=== PATIENT | male | born 1950 | race Caucasian/White ===

== ENCOUNTER 2017-03-09 20:33 | Emergency (ER) | payer OTHER ==
[~2017-03-09] VITALS: Ht 185.4 cm; Wt 91.2 kg
--- NOTE | 2017-03-09 20:36 | NUR ---
DR LAMB AT BEDSIDE FOR EVAL.
--- NOTE | 2017-03-09 20:42 | NUR ---
PT BIBRA FROM HOME TO ER BED 11. C/O SOB X 2 DAYS NOW AND IS WORST TODAY. PT DENIES CHEST PAIN. HX OF CHF. GOWNED AND PLACED ON MONITOR. AWAITING MD BETANCOURT.
[2017-03-09] MEDS ORDERED: IPRATROPIUM NEB FS 0.5 MG/2.5 ML AMPUL.NEB ONE (20:47)
[2017-03-09] MEDS ORDERED: ALBUTEROL FS 2.5 MG/0.5 ML VIAL.NEB ONE (20:47)
--- NOTE | 2017-03-09 20:47 | NUR ---
RT AT BEDSIDE FOR BREATHING TREATMENT.
--- NOTE | 2017-03-09 20:47 | NUR ---
Lisa lutz in ED - 03/09/17 at 2120 by GEOVANNI RT AT BEDSIDE FOR EVAL.
[2017-03-09 20:51] LABS: BASOPHILS # (AUTO) 0.1 /CMM (0.0-0.2); BASOPHILS % (AUTO) 0.7 % (0.0-2.0); EOSINOPHILS # (AUTO) 0.2 /CMM (0.0-0.7); EOSINOPHILS % (AUTO) 1.6 % (0.0-6.0); HEMATOCRIT 40 % (39-51); HEMOGLOBIN 13.9 g/dL (13.5-17.5); LYMPHOCYTES # (AUTO) 0.9 /CMM (0.8-4.8); MEAN CORPUSCULAR HEMOGLOBIN 33 PG (26.0-33.0); MEAN CORPUSCULAR HGB CONC 35 g/dl (31.0-36.0); MEAN CORPUSCULAR VOLUME 96 fL (80-96); MONOCYTES # (AUTO) 0.8 /CMM (0.1-1.30); NEUTROPHILS # (AUTO) 8.2 /CMM (1.8-8.9); NEUTROPHILS % (AUTO) 80.7 % (43.0-81.0); PLATELET COUNT (AUTO) 179 /CMM (150-450); RDW COEFFICIENT OF VARIATION 12.8 (11.5-15.0); RED BLOOD CELL COUNT(AUTO) 4.18 MIL/uL (4.5-6.0); WHITE BLOOD COUNT (AUTO) 10.2 K/uL (4.3-11.0)
--- NOTE | 2017-03-09 20:58 | NUR ---
PT TO RADIOLOGY FOR CHEST XRAY.
[2017-03-09] MEDS ORDERED: ALBUTEROL FS 2.5 MG/3 ML VIAL.NEB NEB ONE (21:00)
[2017-03-09] MEDS ORDERED: IPRATROPIUM NEB FS 0.5 MG/2.5 ML AMPUL.NEB NEB ONE (21:00)
[2017-03-09 21:01] LABS: CALCIUM, SERUM 8.5 mg/dL (8.5-10.1); POTASSIUM 3.6 mmol/L (3.5-5.1)
[2017-03-09 21:07] LABS: INR 1.1 (0.87-1.13); PROTHROMBIN TIME 11.4 SECS (9.5-12.7)
[2017-03-09 21:09] LABS: TROPONIN I 0.051 ng/mL (0.00-0.056)
[2017-03-09 21:14] LABS: BILIRUBIN,DIRECT 0.2 mg/dL (0.0-0.2); BILIRUBIN,TOTAL 0.7 mg/dL (0.2-1.0); TOTAL PROTEIN, SERUM 6.5 g/dL (6.4-8.2)
[2017-03-09] MEDS ORDERED: FUROSEMIDE 40 MG/4 ML VIAL ONE (21:21)
[2017-03-09] MEDS ORDERED: DILTIAZEM HCL 25 MG IV ONE (21:22)
[2017-03-09] MEDS ORDERED: FUROSEMIDE 40 MG/4 ML VIAL IV ONE (21:30)
[2017-03-09] MEDS ORDERED: ASPIRIN 325 MG TABLET PO ONE (21:30)
[2017-03-09] MEDS ORDERED: DILTIAZEM HCL 25 MG IV IV ONE (21:30)
[2017-03-09] MEDS ORDERED: ASPIRIN 325 MG TABLET ONE (21:34)
--- NOTE | 2017-03-09 21:41 | NUR ---
[facility]ED [facility], AWAITING CALL BACK FROM MANAWA
[2017-03-09] MEDS ORDERED: CEFTRIAXONE 1GM BAG (ER ONLY) 50 ML IV ONE (22:11)
[2017-03-09] MEDS ORDERED: DILTIAZEM HCL CD 120 MG PO ONE (22:11)
--- NOTE | 2017-03-09 22:28 | NUR ---
GOING TO [facility] ACCEPTED BY DR. SOLO CALL FOR REPORT ETA: [phone]
[2017-03-09] MEDS ORDERED: DILTIAZEM HCL CD 240 MG PO SCH (22:30)
[2017-03-09] MEDS ORDERED: CEFTRIAXONE 1GM BAG (ER ONLY) 1 GM/50 ML PIGGYBACK IV ONE (22:30)
--- NOTE | 2017-03-09 22:47 | NUR ---
REPORT GIVEN TO JESSICA. PT AWAITING TRANSPORT.
--- NOTE | 2017-03-09 23:29 | NUR ---
PT TRANSPORTED TO [facility]. STABLE CONDITION.
[2017-03-09 23:30] VITALS: BP 132/91
== END 2017-03-09 23:32 | disposition short-term general hospital (02) ==
LOC: ER 20:35
DX: I11.0 Hypertensive heart disease with heart failure (principal); I50.9 Heart failure, unspecified; I48.91 Unspecified atrial fibrillation
CPT/HCPCS: 36415; 71010-TC; 80048-TC; 80076-TC; 83880; 84484-TC; 85025-TC; 85730-TC; 87400; A4606; J0696; J1940; J3490; Z7610

== ENCOUNTER 2023-07-27 17:07 | Emergency (ER) | payer OTHER ==
[~2023-07-27] VITALS: Ht 185.4 cm; Wt 77.1 kg
[2023-07-27] MEDS: FUROSEMIDE 40 MG/4 ML VIAL IV ONE (17:52)
[2023-07-27] MEDS ORDERED: FUROSEMIDE 40 MG/4 ML VIAL ONE (17:53)
[2023-07-27 17:55] LABS: BASOPHILS # (AUTO) 0.1 K/uL (0.0-0.2); BASOPHILS % (AUTO) 1.4 % (0.0-2.0); EOSINOPHILS # (AUTO) 0.1 K/uL (0.0-0.7); HEMATOCRIT 42 % (39-51); HEMOGLOBIN 13.7 g/dL (13.5-17.5); LYMPHOCYTES # (AUTO) 0.9 K/uL (0.8-4.8); LYMPHOCYTES % (AUTO) 14.1 % (20.0-44.0); MEAN CORPUSCULAR HEMOGLOBIN 31 PG (26.0-33.0); MEAN CORPUSCULAR HGB CONC 33 g/dl (31.0-36.0); MEAN CORPUSCULAR VOLUME 94 fL (80-96); MONOCYTES # (AUTO) 0.7 K/uL (0.1-1.30); NEUTROPHILS # (AUTO) 4.6 K/uL (1.8-8.9); NEUTROPHILS % (AUTO) 71.5 % (43.0-81.0); PLATELET COUNT (AUTO) 175 K/uL (150-450); RED BLOOD CELL COUNT(AUTO) 4.45 MIL/uL (4.5-6.0); RED CELL DISTRIBUTION WIDTH 14.1 % (11.5-15.0); WHITE BLOOD COUNT (AUTO) 6.5 K/uL (4.3-11.0)
[2023-07-27 18:03] LABS: CALCIUM, SERUM 9.3 mg/dL (8.5-10.1); CARBON DIOXIDE 29 mmol/L (21-32); CHLORIDE 102 mmol/L (98-107); CREATININE 1.4 mg/dL (0.6-1.3); GLUCOSE 117 mg/dL (74-106); SODIUM SERUM 137 mmol/L (136-145); UREA NITROGEN, BLOOD 26 mg/dL (7-18)
[2023-07-27 18:08] LABS: INR 1.01 (0.91-1.10); PARTIAL THROMBOPLASTIN TIME 25.1 SEC (24.3-34.3); PROTHROMBIN TIME 10.4 SECS (9.2-11.1)
[2023-07-27 18:16] LABS: ALANINE AMINOTRANSFERASE 28 U/L (12-78); ALBUMIN 3.9 g/dL (3.4-5.0); ALKALINE PHOSPHATASE 69 U/L (46-116); ASPARTATE AMINOTRANSFERASE 27 U/L (15-37); BILIRUBIN,DIRECT 0.2 mg/dL (0.0-0.2); BILIRUBIN,TOTAL 0.7 mg/dL (0.2-1.0); NT-PRO BNP 6786 pg/mL (0-125)
[2023-07-28 03:31] VITALS: BP 101/62; TEMP 98.4; O2SAT 98
== END 2023-07-28 03:33 | disposition admitted as inpatient to this hospital (09) ==
LOC: ER 17:11
DX: I11.0 Hypertensive heart disease with heart failure (principal); I50.9 Heart failure, unspecified; I48.91 Unspecified atrial fibrillation
CPT/HCPCS: 99285; 96374; 71045; 93005; 85025; 80048; 80076; 36415; 84484; 85730; 83880; J1940